=== PATIENT | male | born 1995 | race Caucasian/White ===

== ENCOUNTER 2017-10-21 20:22 | Emergency (ER) | payer BC, OTHER ==
[~2017-10-21] VITALS: Ht 188 cm; Wt 90.7 kg
--- NOTE | 2017-10-21 20:50 | ED Lower Extremity ---
General Chief Complaint: Lower Extremity Stated Complaint: POSS DISLOCATION OF L KNEE Nursing Triage Note: PT REPORTS HE HAS HAD TROUBLE WITH HIS LEFT KNEE FOR AT LEAST 1 YEAR. HE PLAYS RUGBY ET IT POPS INTERMITTENTLY, BUT USUALLY POPS BACK INTO PLACE. TONIGHT IT POPPED, BUT THE PAIN PERSISTS. HE C/O LEFT LATERAL KNEE PAIN. HE DENIES ABILITY TO BEAR WEIGHT. Nursing Sepsis Screen: No Definite Risk History of Present Illness Date Seen by Provider: Oct 21, 2017 Time Seen by Provider: 20:45 Initial Comments 21-year-old male reports for left knee pain. He states it's been present for approximately one year, on the lateral aspect of the fibular head. He denies a specific injury however he is complaining rugby. He states he was sitting in a chair today when he had acute pain in this area. Were no injuries. Onset: this afternoon Pain/Injury Location: left knee Method of Injury: unknown, sports injury Allergies and Home Medications Allergies Coded Allergies: NSAIDS (Non-Steroidal Anti-Inflamma (Verified Allergy, Unknown, 10/21/17) Constitutional: no symptoms reported, see HPI Musculoskeletal: see HPI, joint pain (left knee) All Other Systems Reviewed Negative Unless Noted: Yes Past Axpeojj-Cluaij-Azqayp Hx Patient Social History Alcohol Use: Occasionally Uses Recreational Drug Use: Yes Smoking Status: Never a Smoker Recent Foreign Travel: No Contact w/Someone Who Travel: No Recent Infectious Disease Expo: No Recent Hopitalizations: Yes Physical Abuse: No Sexual Abuse: No Mistreated: No Fear: No Seasonal Allergies Seasonal Allergies: No Surgeries History of Surgeries: Yes (RIGHT KENZIE SALAZAR'S, LEFT MENISCUS) Surgeries: Adenoidectomy, Orthopedic Respiratory History of Respiratory Disorde: No Cardiovascular History of Cardiac Disorders: No Neurological History of Neurological Disord: No Psychosocial Suicide Risk Score: 0 Reviewed Nursing Assessment Reviewed/Agree w Nursing PMH: Yes Physical Exam Vital Signs Vital Signs - First Documented 10/21/17 10/21/17 20:30 21:23 Temp 99.2 Pulse 80 Resp 16 B/P (MAP) 142/71 (94) Pulse Ox 98 O2 Delivery Room Air Capillary Refill : Less Than 3 Seconds General Appearance: WD/WN, no apparent distress Cardiovascular: normal peripheral pulses, regular rate, rhythm Respiratory: chest non-tender, lungs clear, normal breath sounds Knees: right knee non-tender, right knee normal inspection, right knee normal range of motion, right knee no evidence of injury, left knee bone tenderness ( lateral joint line and proximal fibular head.), left knee pain, left knee other (limitation of motion secondary to knee pain, no effusion present. Negative Lockman, anterior drawer and posterior drawer. No medial or lateral instability. ) Neurologic/Tendon: normal sensation, normal motor functions, normal tendon functions Neurologic/Psychiatric: no motor/sensory deficits, alert, normal mood/affect, oriented x 3 Skin: normal color, warm/dry Progress/Results/Core Measures Results/Orders My Orders Orders - JOSE MARCIAL Knee, Left, 3 Views (10/21/17 20:26) Acetaminophen Tablet/Caplet (Tylenol T (10/21/17 21:09) Acetaminophen Tablet/Caplet (Tylenol T (10/21/17 21:09) Medications Given in ED Current Medications Medications Dose Ordered Sig/Omi Route Start Time Stop Time Status Last Admin Dose Admin Acetaminophen 325 mg STK-MED ONCE .ROUTE 10/21/17 21:09 10/21/17 21:12 DC 10/21/17 21:17 650 MG Vital Signs/I&O Vital Sign - Last 12Hours 10/21/17 10/21/17 20:30 21:23 Temp 99.2 Pulse 80 80 Resp 16 16 B/P (MAP) 142/71 (94) 138/72 Pulse Ox 98 O2 Delivery Room Air Blood Pressure Mean: 94 Progress Note : Time: 20:45 Progress Note Initial evaluation completed, recommended x-ray of the knee and reevaluation. 2114 x-rays show no fractures or dislocation. 6 inch Amol wrap and knee immobilizer applied. Ice pack to left knee. Tylenol 650 mg orally. Discharge instructions reviewed with the patient and return precautions. All questions answered. Diagnostic Imaging Diagonstic Imaging: Xray Plain Films/CT/US/NM/MRI: knee Comments NAME: DANIELLE BUSTILLO Ivelisse [facility] REC#: [id number] PT STATUS: REG ER : 1995 PHYSICIAN: JOSE MARCIAL ADMIT DATE: 10/21/17/ER Signed Date of Exam: 10/21/17 KNEE, LEFT, 3 VIEWS INDICATION: One year history of left knee problems. Positive intermittently. Cough with continued pain tonight. TECHNIQUE: 3 views of the left knee CORRELATION STUDY: None FINDINGS: The joint spaces are maintained. The articular surfaces are smooth and preserved. There is no acute bony abnormality. Soft tissues are unremarkable. IMPRESSION: 1. Negative for acute bony abnormality of the knee. Dictated by: Dictated on workstation # [id number] Dict: 10/21/172113 Trans: 10/21/172114 Interpreted by: EZEQUIEL CRUZ DO Electronically signed by: EZEQUIEL CRUZ DO 10/21/172114 Departure Impression Impression: Primary Impression: Left knee pain Qualified Codes: M25.562 - Pain in left knee Disposition: HOME, SELF-CARE Condition: Stable Departure-Patient Inst. Decision time for Depature: 21:10 Referrals: [facility] (PCP) Primary Care Physician SAMARA DIAZ MD (Family) Primary Care Physician Patient Instructions: Knee Pain (DC) Add. Discharge Instructions: Tylenol 650 mg every 6 hours for pain. Ice to left knee 20 minutes every 2 hours while awake. Use crutches and knee immobilizer until follow-up. See lion trainer at [facility] or go [facility] tomorrow. Return to emergency department for new problems or concerns. All discharge instructions reviewed with patient and/or family. Voiced understanding. Copy Copies To 1: SAMARA DIAZ MD, AMY ARNP Oct 21, 2017 20:50
[2017-10-21] MEDS ORDERED: ACETAMINOPHEN 325 MG TABLET/CAPLET (TYLENOL) ONE (21:09)
[2017-10-21] MEDS ORDERED: ACETAMINOPHEN 325 MG TABLET/CAPLET (TYLENOL) PO STA (21:09)
--- NOTE | 2017-10-21 21:17 | Diagnostic Imaging Report ---
INDICATION: One year history of left knee problems. Positive intermittently. Cough with continued pain tonight. TECHNIQUE: 3 views of the left knee CORRELATION STUDY: None FINDINGS: The joint spaces are maintained. The articular surfaces are smooth and preserved. There is no acute bony abnormality. Soft tissues are unremarkable. IMPRESSION: 1. Negative for acute bony abnormality of the knee. Dictated by: Dictated on workstation # [id number]
[2017-10-21 21:23] VITALS: BP 138/72
== END 2017-10-21 21:23 | disposition home or self-care (01) ==
LOC: ER 20:24
DX: M25.562 Pain in left knee (principal); Z90.89 Acquired absence of other organs; Z88.6 Allergy status to analgesic agent; X50.0XXA Overexertion from strenuous movement or load, initial encounter; Y93.63 Activity, rugby
CPT/HCPCS: 73562

== ENCOUNTER → 2017-10-24 | Outpatient (CLI) | payer BC ==
--- NOTE | 2017-10-24 12:51 | Diagnostic Imaging Report ---
PROCEDURE: MRI left joint lower extremity without contrast. TECHNIQUE: Multiplanar, multisequence MR imaging of the left knee was performed without contrast. COMPARISON: None available. INDICATION: Left knee pain after rugby injury. Locking sensation of knee. FINDINGS: MENISCI Medial meniscus: Normal. Lateral meniscus: Complex tear of the lateral meniscus which has the free edge flipped into the intercondylar notch and a bucket-handle type configuration. There is minimal normal body of the meniscus present with the majority of it flipped centrally. LIGAMENTS ACL: Intact. PCL: Intact. MCL: Intact. LCL: The fibular collateral ligament has an abnormal lax and wavy morphology without surrounding edema indicative of subacute to chronic partial tear. The biceps femoris and IT band remain intact. EXTENSOR MECHANISM The extensor mechanism is intact. CARTILAGE Articular cartilage throughout the knee is well preserved. No acute chondral or osteochondral lesion. BONE No fracture, stress fracture or osteonecrosis. SOFT TISSUE Large knee effusion with synovitis. Moderate-sized Tyler's cyst with partial dehiscence. IMPRESSION: 1. Complex and displaced tear of the lateral meniscus which has a bucket-handle configuration, and the body of the lateral meniscus is flipped into the intercondylar notch. This would account for patient's locking sensation of the knee. 2. Abnormal lax configuration of the fibular collateral ligament of the LCL complex suggests partial tearing. 3. The ACL is intact. 4. Large knee joint effusion with synovitis. 5. Moderate-sized Tyler's cyst which is partially ruptured. Dictated by: Dictated on workstation # [id number]
== END ==
LOC: RAD 11:05
PROVIDERS: ATTEND Nurse Practitioner
DX: S83.252A Bucket-handle tear of lateral meniscus, current injury, left knee, initial encounter (principal); S83.422A Sprain of lateral collateral ligament of left knee, initial encounter; M65.9 Synovitis and tenosynovitis, unspecified; M25.462 Effusion, left knee; M66.0 Rupture of popliteal cyst; Y93.63 Activity, rugby
CPT/HCPCS: 73721